=== PATIENT | male | born 1945 | race Two or more races ===

== ENCOUNTER 2024-04-19 09:40 | Outpatient (RCR) | payer MEDICARE, MEDICAID, SELFPAY | END 2024-04-24 23:59 | disposition home or self-care (01) | LOC: SCTC 09:40 | PROVIDERS: Referring Provider Urology; Visit Provider Radiology Therapeutic Radiology | DX: Z51.0 Encounter for antineoplastic radiation therapy (principal); C61 Malignant neoplasm of prostate; Z90.79 Acquired absence of other genital organ(s) | CPT/HCPCS: 77336; 77385 ==

== ENCOUNTER → 2024-04-26 | Outpatient (CLI) | payer MEDICARE, MEDICAID, SELFPAY ==
[2024-04-26 09:47] LABS: Prostate Specific Antigen < 0.10 ng/mL (0-4.00)
== END | disposition home or self-care (01) ==
LOC: COPL 08:46
PROVIDERS: PCP Family Medicine; Referring Provider Urology; Visit Provider Urology
DX: C61 Malignant neoplasm of prostate (principal)
CPT/HCPCS: 36415; 84153

== ENCOUNTER → 2024-05-05 | Outpatient (CLI) | payer MEDICARE, MEDICAID, SELFPAY ==
[2024-05-05 08:36] LABS: Basophils % (Auto) 1 % (0-2.5); Eosinophils # (Auto) 0.2 Thou/mm3 (0.0-0.5); Eosinophils % (Auto) 4 % (0-10); Hemoglobin 12.3 g/dL (13.5-16.0); Immature Granulocytes % (Auto) 0 % (0-0); Immature Granulocytes Auto 0.01 Thou/mm3 (0.00-0.00); Lymphocytes # (Auto) 1.3 Thou/mm3 (1.0-4.8); Lymphocytes % (Auto) 20 % (10-50); Mean Corpuscular HGB Conc 33.2 g/dl (31.0-37.0); Mean Corpuscular Hemoglobin 31.7 pg (25.0-35.0); Mean Corpuscular Volume 95 fL (80-100); Monocytes # (Auto) 0.7 Thou/mm3 (0.0-0.8); Monocytes % (Auto) 11 % (0-12); Neutrophils % (Auto) 64 % (37-80); Nucleated Red Blood Cell % 0 /100 WBC (0); Platelet Count 180 Thou/mm3 (140-440); Red Blood Count 3.88 Miln/mm3 (4.50-5.90); White Blood Count 6.2 Thou/mm3 (3.8-10.6)
[2024-05-05 08:58] LABS: Prostate Specific Antigen < 0.10 ng/mL (0-4.00)
[2024-05-05 09:09] LABS: Alanine Aminotransferase 22 U/L (10-49); Albumin, Serum 4.6 gm/dL (3.4-4.8); Albumin/Globulin Ratio 2.2 (1.2-2.2); Alkaline Phosphatase 92 U/L (46-116); Anion Gap 7 (7-16); Aspartate Amino Transferase 19 U/L (0-34); BUN/Creatinine Ratio 26 Ratio (12-20); Bilirubin,Total 0.4 mg/dL (0.3-1.2); Blood Urea Nitrogen 26 mg/dL (9-23); Calcium 9.9 mg/dL (8.3-10.6); Calcium (Corrected) 9.9 mg/dL (8.5-10.1); Carbon Dioxide 28.2 mMol/L (20.0-31.0); Chloride 104 mMol/L (98-107); Globulin 2.1 gm/dL (2.3-3.5); Glucose 126 mg/dL (74-106); Osmolality,Calculated 284 (275-295); Potassium 4.8 mMol/L (3.4-5.1); Sodium 139 mMol/L (136-145); Total Protein 6.7 gm/dL (5.7-8.2); eGFR > 60 See Note
== END | disposition home or self-care (01) ==
PROVIDERS: PCP Radiology Therapeutic Radiology; Referring Provider Radiology Therapeutic Radiology; Visit Provider Radiology Therapeutic Radiology
DX: C61 Malignant neoplasm of prostate (principal)
CPT/HCPCS: 36415; 80053; 84153; 85025

== ENCOUNTER 2024-05-24 14:49 | Outpatient (RCR) | payer MEDICARE, MEDICAID, SELFPAY ==
--- NOTE | 2024-05-04 09:50 | CTCTSUMM_ITS ---
[facility] [address] [place], [place] [address] Treatment Summary Date: 05/04/2024 MR#: [id number] Name: RIMMA HOROWITZ : 1945 Dx: C61 Referring Physician: Hilaria Webre MD (A) Diagnosis: [ICD10] C61 Malignant neoplasm of prostate (B) Aim of Treatment: ??Curative (C) Concomitant Chemotherapy: No (D) Radiation Dates: 02/23/2024 through 04/19/2024 Treatment Prescription prostate VMAT 10MV 6,840 cGy 38 180 cGy Approved (E) All parrish were treated using customized MLC Blocks (F) Finding at Discharge: Patient seen for first follow-up on 05/04/2024. Patient was feeling well w ith no significant pelvic or other symptoms. Patient will continue on with the Lupron for approximat carson another year. (G) Discharge Instructions and F/U Appt was given: The patient was also advised to continue follow-up with Dr. Weber and primary care physician: Cc: Hilaria Gooden MD Electronically signed by: Yusuf Vogel MD, MARGOR 05/04/2024 9:48 AM
== END 2024-05-25 23:59 | disposition home or self-care (01) ==
LOC: SCTC 14:49
PROVIDERS: PCP Family Medicine; Referring Provider Family Medicine; Visit Provider Radiology Therapeutic Radiology
DX: Z51.11 Encounter for antineoplastic chemotherapy (principal); C61 Malignant neoplasm of prostate
CPT/HCPCS: 96402; 99212; J9217; G0463

== ENCOUNTER → 2024-06-22 | Outpatient (BNVA) | payer MEDICARE, MEDICAID, SELFPAY | END | disposition home or self-care (01) | PROVIDERS: PCP Family Medicine; Referring Provider Family Medicine; Visit Provider Urology | DX: C61 Malignant neoplasm of prostate (principal); Z90.79 Acquired absence of other genital organ(s); R32 Unspecified urinary incontinence; E11.9 Type 2 diabetes mellitus without complications; I10 Essential (primary) hypertension | CPT/HCPCS: 99212; G0463 ==

== ENCOUNTER → 2024-08-11 | Outpatient (CLI) | payer MEDICARE, MEDICAID, SELFPAY ==
[2024-08-11 11:26] LABS: Basophils % (Auto) 0 % (0-2.5); Eosinophils # (Auto) 0.2 Thou/mm3 (0.0-0.5); Eosinophils % (Auto) 2 % (0-10); Hematocrit 36.1 % (41.0-53.0); Immature Granulocytes % (Auto) 1 % (0-0); Immature Granulocytes Auto 0.04 Thou/mm3 (0.00-0.00); Lymphocytes # (Auto) 1.6 Thou/mm3 (1.0-4.8); Lymphocytes % (Auto) 19 % (10-50); Mean Corpuscular HGB Conc 33.2 g/dl (31.0-37.0); Mean Corpuscular Volume 93 fL (80-100); Monocytes # (Auto) 0.6 Thou/mm3 (0.0-0.8); Monocytes % (Auto) 7 % (0-12); Neutrophils # (Auto) 6.2 Thou/mm3 (1.8-7.7); Neutrophils % (Auto) 72 % (37-80); Nucleated Red Blood Cell % 0 /100 WBC (0); Platelet Count 217 Thou/mm3 (140-440); RDW Standard Deviation 42.2 fL (35.1-43.9); Red Blood Count 3.87 Miln/mm3 (4.50-5.90); White Blood Count 8.6 Thou/mm3 (3.8-10.6)
[2024-08-11 11:33] LABS: Partial Thromboplastin Time 28.9 Seconds (22.0-36.0); Prothrombin Time 10.6 Seconds (9.0-12.2)
[2024-08-11 11:38] LABS: Anion Gap 9 (7-16); BUN/Creatinine Ratio 23 Ratio (12-20); Blood Urea Nitrogen 18 mg/dL (9-23); Calcium 9.3 mg/dL (8.3-10.6); Carbon Dioxide 27.8 mMol/L (20.0-31.0); Chloride 101 mMol/L (98-107); Creatinine (Component) 0.8 mg/dL (0.6-1.3); Glucose 136 mg/dL (74-106); Osmolality,Calculated 279 (275-295); Potassium 4.1 mMol/L (3.4-5.1); Sodium 138 mMol/L (136-145); eGFR > 60 See Note
[2024-08-11 11:45] LABS: Prostate Specific Antigen < 0.10 ng/mL (0-4.00)
== END | disposition home or self-care (01) ==
LOC: COPL 10:45
PROVIDERS: PCP Internal Medicine; Referring Provider Internal Medicine; Visit Provider Internal Medicine
DX: C61 Malignant neoplasm of prostate (principal); I25.10 Atherosclerotic heart disease of native coronary artery without angina pectoris; I48.91 Unspecified atrial fibrillation
CPT/HCPCS: 36415; 80048; 84153; 85025; 85610; 85730

== ENCOUNTER 2024-08-23 14:15 | Outpatient (RCR) | payer MEDICARE, MEDICAID, SELFPAY ==
--- NOTE | 2024-08-19 10:07 | CTCFLWUP_ITS ---
[facility] [address] [place], [place] [address] FOLLOW-UP NOTE Date: 08/19/2024 MR#: [id number] Name: RIMMA HOROWITZ : 1945 Dx: C61 Malignant neoplasm of prostate Identification. Patient with prostate CA status post radical prostatectomy 10/10/2023. Group 5 (5+4) with 40% bladder neck invasion. Right seminal vesicle involved. pT3N1 PSA joleen to 0.81 on 01/12/2024. Along with Lupron injections, 6 months worth, patient completed XRT via VMAT 6840 centigray completed 04/19/2024. Most recent labs 08/11/2024 CBC CMP, with mildly elevated glucose and PSA less than 0.10. Patient doing well with only mild hot flashes side effect. Minimal pelvic symptoms. Assessment1. pT3N1 radical prostatectomy [facility] 10/10/2023. 2. Completed XRT 6840 cGy 04/19/2024. Most recent lab less than 0.1 PSA 08/11/2024. 3. Receiving Lupron injections will get third 3-month injection later this month. 4. Follow-up in 3 months. Electronically signed by: Yusuf Vogel M.D. 08/19/2024 10:05 AM
== END 2024-08-23 23:59 | disposition home or self-care (01) ==
LOC: SCTC 14:15
PROVIDERS: PCP Family Medicine; Referring Provider Radiology Therapeutic Radiology; Visit Provider Radiology Therapeutic Radiology
DX: Z51.11 Encounter for antineoplastic chemotherapy (principal); C61 Malignant neoplasm of prostate; Z90.79 Acquired absence of other genital organ(s); Z92.3 Personal history of irradiation; Z79.818 Long term (current) use of other agents affecting estrogen receptors and estrogen levels
CPT/HCPCS: 96402; 99213; J9217; G0463

== ENCOUNTER → 2024-10-19 | Outpatient (BNVA) | payer MEDICARE, MEDICAID, SELFPAY | END | disposition home or self-care (01) | PROVIDERS: PCP Family Medicine; Referring Provider Family Medicine; Visit Provider Urology | DX: C61 Malignant neoplasm of prostate (principal); R32 Unspecified urinary incontinence; Z92.3 Personal history of irradiation; Z90.79 Acquired absence of other genital organ(s); E11.9 Type 2 diabetes mellitus without complications; I10 Essential (primary) hypertension; E03.9 Hypothyroidism, unspecified | CPT/HCPCS: 81003; 99212; G0463 ==

== ENCOUNTER → 2024-11-15 | Outpatient (CLI) | payer MEDICARE, MEDICAID, SELFPAY ==
[2024-11-15 14:45] LABS: Anion Gap 9 (7-16); BUN/Creatinine Ratio 27 Ratio (12-20); Basophils % (Auto) 1 % (0-2.5); Blood Urea Nitrogen 24 mg/dL (9-23); Calcium 9.6 mg/dL (8.3-10.6); Carbon Dioxide 29.4 mMol/L (20.0-31.0); Chloride 102 mMol/L (98-107); Creatinine (Component) 0.9 mg/dL (0.6-1.3); Eosinophils # (Auto) 0.2 Thou/mm3 (0.0-0.5); Eosinophils % (Auto) 2 % (0-10); Glucose 147 mg/dL (74-106); Hematocrit 33.7 % (41.0-53.0); Hemoglobin 11.4 g/dL (13.5-16.0); Immature Granulocytes % (Auto) 1 % (0-0); Immature Granulocytes Auto 0.03 Thou/mm3 (0.00-0.00); Lymphocytes # (Auto) 1.3 Thou/mm3 (1.0-4.8); Lymphocytes % (Auto) 20 % (10-50); Mean Corpuscular HGB Conc 33.8 g/dl (31.0-37.0); Mean Corpuscular Hemoglobin 31.1 pg (25.0-35.0); Mean Corpuscular Volume 92 fL (80-100); Monocytes # (Auto) 0.5 Thou/mm3 (0.0-0.8); Monocytes % (Auto) 8 % (0-12); Neutrophils # (Auto) 4.3 Thou/mm3 (1.8-7.7); Neutrophils % (Auto) 68 % (37-80); Nucleated Red Blood Cell % 0 /100 WBC (0); Osmolality,Calculated 286 (275-295); Platelet Count 251 Thou/mm3 (140-440); Potassium 4.5 mMol/L (3.4-5.1); RDW Standard Deviation 42.3 fL (35.1-43.9); Red Blood Count 3.66 Miln/mm3 (4.50-5.90); Sodium 140 mMol/L (136-145); White Blood Count 6.3 Thou/mm3 (3.8-10.6); eGFR > 60 See Note
[2024-11-15 14:47] LABS: Partial Thromboplastin Time 33.5 Seconds (22.0-36.0)
== END | disposition home or self-care (01) ==
LOC: COPL 13:35
PROVIDERS: PCP Family Medicine; Referring Provider Internal Medicine; Visit Provider Internal Medicine
DX: I25.10 Atherosclerotic heart disease of native coronary artery without angina pectoris (principal); I48.91 Unspecified atrial fibrillation
CPT/HCPCS: 36415; 80048; 85025; 85610; 85730

== ENCOUNTER 2024-11-22 09:56 | Outpatient (RCR) | payer MEDICARE, MEDICAID, SELFPAY ==
--- NOTE | 2024-11-18 10:34 | CTCFLWUP_ITS ---
[facility] [address] [place], [place] [address] FOLLOW-UP NOTE Date: 11/18/2024 MR#: [id number] Name: RIMMA HOROWITZ : 1945 Dx: C61 Malignant neoplasm of prostate Identification. Patient with prostate CA radical prostectomy 10/10/2023. Group 5 (5+4) with 40% bladder neck invasion right seminal vesicle involved pT3pN1 08/03+ nodes Postop XRT 6840 cGy via VMAT completed 04/19/2024 PSA that was steadily rising postop to 0.81 had dropped to <0.10 08/11/2024. Patient is doing well clinically minor pelvic symptoms related to the treatments and the side effects of Lupron. Spoke to patient about the possible benefit of adding the newer antiandrogen to his Lupron regimen considering his high risk. A#!. [place] prostate pT3pN1 radical prostatectomy [facility]. 10/10/2023 A#2. Postop XRT 6840 cGy via VMAT completed 04/19/2024. Concomitant Lupron injections. A#3. PSA less than 0.1 08/11/2024. A#4. Referral to Dr. Paez. For possible addition of newer antiandrogen considering the high risk of this patient's cancer A#5. Patient taking calcium and vitamin D. I will see patient again in 6 months time. Cc: Hilaria Weber MD Electronically signed by: Yusuf Vogel M.D. 11/18/2024 10:32 AM
== END 2024-11-22 23:59 | disposition home or self-care (01) ==
LOC: SCTC 09:56
PROVIDERS: PCP Family Medicine; Referring Provider Family Medicine; Visit Provider Radiology Therapeutic Radiology
DX: Z51.11 Encounter for antineoplastic chemotherapy (principal); C61 Malignant neoplasm of prostate; Z90.79 Acquired absence of other genital organ(s); Z92.3 Personal history of irradiation
CPT/HCPCS: 96402; 99213; J9217; G0463

== ENCOUNTER 2024-12-15 08:54 | Outpatient (RCR) | payer MEDICARE, MEDICAID, SELFPAY ==
--- NOTE | 2024-12-20 05:08 | CTCCONSULT_ITS ---
Patient: RIMMA HOROWITZ : 1945 MR#: [id number] Page 3 of 5 CONSULTATION NOTE DATE OF CONSULTATION: 12/15/2024 NAME: RIMMA HOROWITZ ACCOUNT: [id number] : 1945 AGE: 79 REFERRING PHYSICIAN: Brennan Staley MD PRIMARY PHYSICIAN: Brennan Staley MD REASON FOR VISIT: ONCOLOGY HISTORY: DIAGNOSIS: Malignant neoplasm of prostate [ICD10] C61 DATE OF DIAGNOSIS: 10/10/2023 STAGE/TNM: Stage IV Prostate cancer s/p radical prostatectomy 10/10/2023 Group 5+4 Ever with 40% bladder neck invasion right seminal vesicles involved T3 N1 3 out of 11 lymph nodes positive Positive radiation [address] Vogel A#!. [place] prostate pT3pN1 radical prostatectomy [facility]. 10/10/2023 A#2. Postop XRT 6840 cGy via VMAT completed 04/19/2024. Concomitant Lupron injections. TREATMENT HISTORY: Care?Plan Start?Date Cycle Day Intent HISTORY OF PRESENT ILLNESS: Subjective: Mr. Gil is a patient with a history of prostate cancer who has undergone surgical removal and radiation therapy. He presents for follow-up and management of his condition. The patient is currently receiving injections every 6 months to prevent cancer recurrence. He expresses willingness to start a new oral medication as recommended by the physician to further reduce the risk of cancer returning. Mr. Gil prefers to continue with injections every 3 months rather than every 6 months, stating that it would hurt less with a lower dose at each administration. Mr. Gil reports taking calcium supplements as previously recommended by another physician. He purchases these dqvq-ljo-yrcnuwz at [facility] but is unsure if his insurance covers the cost. He is unable to recall the specific name or formulation of the calcium supplement he is taking. Medical History - Prostate cancer, treated with surgery and radiation Surgical History - Prostatectomy for prostate cancer, followed by radiation therapy Medications and Supplements - Calcium - Taken daily - Purchased dpxg-qnt-wrydasz at [facility] - Injection (unspecified) - Given every 3 months - For preventing cancer recurrence Social History - Substance Use: Takes calcium supplements purchased [id number] at [facility] - Living Situation: Lives independently, able to purchase own supplements Objective: N/A OTHER MEDICAL HISTORY/CONDITIONS: Prostate cancer - dx 05/13/2023 HTN Diabetes Hypothyroid Robotic-assisted radical prostectomy 10/10/23 Cholecystectomy - 3 yrs ago FAMILY HISTORY: Patient?denies?family?cancer?history. SOCIAL HISTORY: Occupational?History:?RETIRED Education?Level:?Completed something less than 8th grade Marital?Status:? Tobacco Use:?Quit 30yrs ago-Smoked 5-6cigarettes/day x 25yrs ETOH Use:?1-2 beers/day now; drank several beers/day x 60yrs Drug?Note:?DENIES Social?History?Note:?Lives?with? MEDICATIONS: 1. Aspirin Child - 81 mg Daily 2. levothyroxine - 100 mcg/24 h Daily 3. lisinopril - 10 mg Daily 4. metformin - 500 mg Daily Medications Last Reconciled by Steph Chaves RN on 12/15/2024 ALLERGIES: No Known Drug Allergies REVIEW OF SYSTEMS: A complete 14-point review of systems was performed and is negative except as noted in interval history. PHYSICAL EXAMINATION: VITAL SIGNS: Temperature?98.3, B/P?136/72, Height?63.5?inches, Oxygen?Saturation?100% Weight?136?lbs (Change?since?11/22/24:?-2.8?lbs) PAIN: 0 - No pain ECOG Performance Status: 1 - Symptomatic; ambulatory; restricted in strenuous activity GENERAL APPEARANCE: Appears well, in no apparent distress, appropriately interactive. HEENT: Normocephalic, no temporal wasting, normal conjunctiva, no scleral icterus, normal hearing, lips without lesions, neck normal range of motion. CARDIOVASCULAR: Not assessed. PULMONARY: Normal respiratory effort, no respiratory distress or use of accessory muscles, speaking in full sentences, no tachypnea. EXTREMITIES: No pedal edema or cyanosis. SKIN: Normal skin appearance. NEUROLOGIC: Alert and oriented x4. PSHYCHIATRIC: Appropriate affect, mood normal, behavior normal, intact thought and speech. LABORATORY DATA: I have personally reviewed and interpreted each of the patient?s relevant lab tests, abnormal findings are below: Date 08/11/24 11/15/24 ??WHITE?BLOOD?COUNT?(Thou/mm3) 8.6 6.3 ??RED?BLOOD?COUNT?(Miln/mm3) 3.87?L 3.66?L ??HEMOGLOBIN?(gm/dl) 12.0?L 11.4?L ??HEMATOCRIT?(%) 36.1?L 33.7?L ??PLATELET?COUNT?(Thou/mm3) 217 251 ??NEUTROPHILS?%,?AUTO?(%) 72 68 ??LYMPH?%,?AUTO?(%) 19 20 ??NEUTROPHILS,?AUTO?(Thou/mm3) 6.2 4.3 ??GLUCOSE,RANDOM?(mg/dL) 136?H 147?H ??BLOOD?UREA?NITROGEN?(mg/dL) 18 24?H ??CREATININE?(mg/dL) 0.80 0.90 ??SODIUM?(mmol/L) 138 140 ??POTASSIUM?(mmol/L) 4.1 4.5 ??CHLORIDE?(mmol/L) 101 102 ??CrCl?(CandG)?(ml/min) 67.00 59.14 ??CALCIUM,?SERUM?(mg/dL) 9.3 9.6 ASSESSMENT/PLAN: Assessment and Plan: Mr. Gil, a male patient with a history of prostate cancer status post prostatectomy and radiation therapy, presenting for follow-up and management of his condition. Prostate Cancer (History of) Assessment: Patient has a history of prostate cancer that was treated with prostatectomy and radiation therapy. Despite treatment, there remains a risk of cancer recurrence. The patient is currently receiving injections every 3 months to prevent cancer recurrence. We are considering adding an oral medication to further reduce the risk of recurrence. Plan: - Continue current injection regimen every 3 months for cancer prevention - Initiate new oral medication for additional cancer prevention - Trial for 2 years, with option to discontinue if side effects occur - Informed consent obtained: patient agrees to try the new medication - Follow up in 4 weeks via phone call to discuss medication initiation - Medication will be delivered to patient's home or picked up (location to be confirmed) Bone Health Assessment: Given the patient's advanced age and history of prostate cancer treatment, there is a concern for potential bone density issues. Plan: - Order bone density test to assess bone health - Continue current cpce-zyg-jnmwcyv calcium supplementation - Recommend daily vitamin D supplementation in addition to calcium - Patient to bring calcium supplement bottle to next appointment for review ORDERS: Order # Description [id number] DXA L-Spine and Hip [id number] Comprehensive Metabolic Panel - 12 + CBC with Auto Diff + PSA + MD Follow Up 4 Week RETURN TO CLINIC: I reviewed the diagnosis, prognosis, and recommended treatment/procedure options with the patient (and/or their legal event representative), including the potential benefits, risks, side effects and alternative therapies. We also discussed the option of no treatment and the possibility of clinical trial participation, if applicable. All questions were addressed, and they demonstrated understanding. They provided informed consent to proceed with the proposed plan of care. BILLING AND COMPLIANCE: I reviewed external records from providers outside my specialty as summarized above. I spent a total of 50 minutes on this patient?s care on the day of their visit excluding time spent related to any billed procedures. This time includes time spent with the patient as well as time spent documenting in the medical record, reviewing patients records and tests, obtaining history, placing orders, communicating with other healthcare professionals, counseling the patient, family or caregiver, and/or care coordination for the diagnoses above. Electronically Signed by: Lamont Paez MD T: 5:06 AM CC: PCP: Brennan Staley Referring: Brennan Staley This document was completed utilizing speech recognition software. Grammatical errors, random word insertions, pronoun errors, and incomplete sentences are an occasional consequence of this system due to software limitations, ambient noise, and hardware issues. Any formal questions or concerns about the content, text or information contained within the body of this dictation should be directly addressed to the provider for clarification.
== END 2024-12-23 23:59 | disposition home or self-care (01) ==
LOC: SCTC 08:54
PROVIDERS: PCP Family Medicine; Referring Provider Family Medicine; Visit Provider Internal Medicine Hematology & Oncology
DX: C61 Malignant neoplasm of prostate (principal); Z90.79 Acquired absence of other genital organ(s); Z92.3 Personal history of irradiation
CPT/HCPCS: 99213; G0463

== ENCOUNTER 2025-01-12 10:18 | Outpatient (RCR) | payer MEDICARE, MEDICAID, SELFPAY ==
--- NOTE | 2025-01-12 14:18 | CTCFLWUP_ITS ---
Patient: RIMMA HOROWITZ : 1945 Page 5 of 5 FOLLOW UP NOTE DATE OF SERVICE: 01/12/2025 NAME: RIMMA HOROWITZ ACCOUNT: [id number] : 1945 AGE: 79 INTERVAL HISTORY: Patient was started on Xtandi at the last visit and he is here to follow-up. Patient is doing well and have no complaint from the medication. Patient have not done the blood work and will be doing today. ONCOLOGY HISTORY: DIAGNOSIS: Malignant neoplasm of prostate [ICD10] C61 DATE OF DIAGNOSIS: 10/10/2023 STAGE/TNM: Stage IV Prostate cancer s/p radical prostatectomy 10/10/2023 Group 5+4 [place] with 40% bladder neck invasion right seminal vesicles involved T3 N1 3 out of 11 lymph nodes positive Positive radiation [address] Vogel A#!. [place] prostate pT3pN1 radical prostatectomy [facility]. 10/10/2023 A#2. Postop XRT 6840 cGy via VMAT completed 04/19/2024. Concomitant Lupron injections. TREATMENT HISTORY: Care?Plan Start?Date Cycle Day Intent HISTORY OF PRESENT ILLNESS: Subjective: Mr. Gil is a patient with a history of prostate cancer who has undergone surgical removal and radiation therapy. He presents for follow-up and management of his condition. The patient is currently receiving injections every 6 months to prevent cancer recurrence. He expresses willingness to start a new oral medication as recommended by the physician to further reduce the risk of cancer returning. Mr. Gil prefers to continue with injections every 3 months rather than every 6 months, stating that it would hurt less with a lower dose at each administration. Mr. Gil reports taking calcium supplements as previously recommended by another physician. He purchases these zydo-eza-vyygmil at [facility] but is unsure if his insurance covers the cost. He is unable to recall the specific name or formulation of the calcium supplement he is taking. Medical History - Prostate cancer, treated with surgery and radiation Surgical History - Prostatectomy for prostate cancer, followed by radiation therapy Medications and Supplements - Calcium - Taken daily - Purchased gmhg-huw-wcsmhmt at [facility] - Injection (unspecified) - Given every 3 months - For preventing cancer recurrence Social History - Substance Use: Takes calcium supplements purchased bneh-sql-[id number] at [facility] - Living Situation: Lives independently, able to purchase own supplements Objective: N/A OTHER MEDICAL HISTORY/CONDITIONS: Prostate cancer - dx 05/13/2023 HTN Diabetes Hypothyroid Robotic-assisted radical prostectomy 10/10/23 Cholecystectomy - 3 yrs ago FAMILY HISTORY: Patient?denies?family?cancer?history. SOCIAL HISTORY: Occupational?History:?RETIRED Education?Level:?Completed something less than 8th grade Marital?Status:? Tobacco Use:?Quit 30yrs ago-Smoked 5-6cigarettes/day x 25yrs ETOH Use:?1-2 beers/day now; drank several beers/day x 60yrs Drug?Note:?DENIES Social?History?Note:?Lives?with? MEDICATIONS: 1. Aspirin Child - 81 mg Daily 2. Calcium + D - 600 mg(1,500mg) -200 unit 1 tab Twice a Day 3. levothyroxine - 100 mcg/24 h Daily 4. lisinopril - 10 mg Daily 5. metformin - 500 mg Daily 6. Xtandi - 80 mg 2 tab Daily Medications Last Reconciled by Estefani Ramos MA on 01/12/2025 ALLERGIES: No Known Drug Allergies REVIEW OF SYSTEMS: A complete 14-point review of systems was performed and is negative except as noted in interval history. PHYSICAL EXAMINATION: VITAL SIGNS: Temperature?98.5, B/P?129/70, Oxygen?Saturation?97% Weight?134?lbs (Change?since?12/15/24:?-2?lbs) PAIN: 0 - No pain ECOG Performance Status: 0 - Asymptomatic and fully active GENERAL APPEARANCE: Appears well, in no apparent distress, appropriately interactive. HEENT: Normocephalic, no temporal wasting, normal conjunctiva, no scleral icterus, normal hearing, lips without lesions, neck normal range of motion. CARDIOVASCULAR: Not assessed. PULMONARY: Normal respiratory effort, no respiratory distress or use of accessory muscles, speaking in full sentences, no tachypnea. EXTREMITIES: No pedal edema or cyanosis. SKIN: Normal skin appearance. NEUROLOGIC: Alert and oriented x4. PSHYCHIATRIC: Appropriate affect, mood normal, behavior normal, intact thought and speech. LABORATORY DATA: I have personally reviewed and interpreted each of the patient?s relevant lab tests, abnormal findings are below: Date 08/11/24 11/15/24 ??WHITE?BLOOD?COUNT?(Thou/mm3) 8.6 6.3 ??RED?BLOOD?COUNT?(Miln/mm3) 3.87?L 3.66?L ??HEMOGLOBIN?(gm/dl) 12.0?L 11.4?L ??HEMATOCRIT?(%) 36.1?L 33.7?L ??PLATELET?COUNT?(Thou/mm3) 217 251 ??NEUTROPHILS?%,?AUTO?(%) 72 68 ??LYMPH?%,?AUTO?(%) 19 20 ??NEUTROPHILS,?AUTO?(Thou/mm3) 6.2 4.3 ??GLUCOSE,RANDOM?(mg/dL) 136?H 147?H ??BLOOD?UREA?NITROGEN?(mg/dL) 18 24?H ??CREATININE?(mg/dL) 0.80 0.90 ??SODIUM?(mmol/L) 138 140 ??POTASSIUM?(mmol/L) 4.1 4.5 ??CHLORIDE?(mmol/L) 101 102 ??CrCl?(CandG)?(ml/min) 67.00 59.14 ??CALCIUM,?SERUM?(mg/dL) 9.3 9.6 ASSESSMENT/PLAN: Assessment and Plan: Mr. Gil, a male patient with a history of prostate cancer status post prostatectomy and radiation therapy, presenting for follow-up and management of his condition. Prostate Cancer (History of) Assessment: Patient has a history of prostate cancer that was treated with prostatectomy and radiation therapy. Despite treatment, there remains a risk of cancer recurrence. The patient is currently receiving injections every 3 months to prevent cancer recurrence. We are considering adding an oral medication to further reduce the risk of recurrence. Plan: - Continue current injection regimen every 3 months for cancer prevention Continue Xtandi Bone Health Assessment: Given the patient's advanced age and history of prostate cancer treatment, there is a concern for potential bone density issues. Plan: - Order bone density test to assess bone health - Continue current klvu-ysz-geslnvh calcium supplementation - Recommend daily vitamin D supplementation in addition to calcium - Patient to bring calcium supplement bottle to next appointment for review BRCA testing Will check for both BRCA 1 and 2 on the tissue as well as somatic BRCA 1 and 2 for possible treatment with PARP inhibitors in the future ORDERS: Order # Description [id number] Comprehensive Metabolic Panel - 12 + CBC with Auto Diff [id number] PSA [id number] [facility] Amanda CDX [id number] Comprehensive Metabolic Panel - 12 + CBC with Auto Diff + PSA [id number] MD Follow Up 2 Months RETURN TO CLINIC: I reviewed the diagnosis, prognosis, and recommended treatment/procedure options with the patient (and/or their legal telecommunications sales representative), including the potential benefits, risks, side effects and alternative therapies. We also discussed the option of no treatment and the possibility of clinical trial participation, if applicable. All questions were addressed, and they demonstrated understanding. They provided informed consent to proceed with the proposed plan of care. BILLING AND COMPLIANCE: I reviewed external records from providers outside my specialty as summarized above. I spent a total of 50 minutes on this patient?s care on the day of their visit excluding time spent related to any billed procedures. This time includes time spent with the patient as well as time spent documenting in the medical record, reviewing patients records and tests, obtaining history, placing orders, communicating with other healthcare professionals, counseling the patient, family or caregiver, and/or care coordination for the diagnoses above. Electronically Signed by: {Object.Sanct_ID*PnP.NameFL@M}, {Object.Sanct_ID*PnP.Suffix@U} D: {Object.Sanct_Date} T: {Object.Sanct_Time} CC: PCP: Brennan Staley Referring: Brennan Staley This document was completed utilizing speech recognition software. Grammatical errors, random word insertions, pronoun errors, and incomplete sentences are an occasional consequence of this system due to software limitations, ambient noise, and hardware issues. Any formal questions or concerns about the content, text or information contained within the body of this dictation should be directly addressed to the provider for clarification.
== END 2025-01-23 23:59 | disposition home or self-care (01) ==
LOC: SCTC 10:18
PROVIDERS: PCP Family Medicine; Referring Provider Family Medicine; Visit Provider Internal Medicine Hematology & Oncology
DX: C61 Malignant neoplasm of prostate (principal); Z90.79 Acquired absence of other genital organ(s); Z92.3 Personal history of irradiation
CPT/HCPCS: 99213; G0463

== ENCOUNTER → 2025-01-12 | Outpatient (CLI) | payer MEDICARE, MEDICAID, SELFPAY ==
[2025-01-12 14:20] LABS: Basophils # (Auto) 0.0 Thou/mm3 (0.0-0.2); Basophils % (Auto) 1 % (0-2.5); Eosinophils # (Auto) 0.2 Thou/mm3 (0.0-0.5); Eosinophils % (Auto) 3 % (0-10); Hematocrit 34.6 % (41.0-53.0); Hemoglobin 11.4 g/dL (13.5-16.0); Immature Granulocytes Auto 0.02 Thou/mm3 (0.00-0.00); Lymphocytes # (Auto) 1.4 Thou/mm3 (1.0-4.8); Lymphocytes % (Auto) 24 % (10-50); Mean Corpuscular HGB Conc 32.9 g/dl (31.0-37.0); Mean Corpuscular Hemoglobin 30.1 pg (25.0-35.0); Mean Corpuscular Volume 91 fL (80-100); Monocytes # (Auto) 0.4 Thou/mm3 (0.0-0.8); Monocytes % (Auto) 8 % (0-12); Neutrophils # (Auto) 3.7 Thou/mm3 (1.8-7.7); Neutrophils % (Auto) 64 % (37-80); Nucleated Red Blood Cell # 0.00 Thou/mm3 (0.00-0.00); Nucleated Red Blood Cell % 0 /100 WBC (0); Platelet Count 245 Thou/mm3 (140-440); RDW Standard Deviation 41.3 fL (35.1-43.9); Red Blood Count 3.79 Miln/mm3 (4.50-5.90); White Blood Count 5.7 Thou/mm3 (3.8-10.6)
[2025-01-12 14:34] LABS: Prostate Specific Antigen < 0.10 ng/mL (0-4.00)
[2025-01-12 14:36] LABS: Alanine Aminotransferase 17 U/L (10-49); Albumin, Serum 4.0 gm/dL (3.4-4.8); Albumin/Globulin Ratio 1.9 (1.2-2.2); Alkaline Phosphatase 95 U/L (46-116); Anion Gap 9 (7-16); Aspartate Amino Transferase 20 U/L (0-34); BUN/Creatinine Ratio 34 Ratio (12-20); Bilirubin,Total 0.5 mg/dL (0.3-1.2); Blood Urea Nitrogen 27 mg/dL (9-23); Calcium 10.2 mg/dL (8.3-10.6); Calcium (Corrected) 10.2 mg/dL (8.5-10.1); Carbon Dioxide 27.6 mMol/L (20.0-31.0); Chloride 104 mMol/L (98-107); Creatinine (Component) 0.8 mg/dL (0.6-1.3); Globulin 2.1 gm/dL (2.3-3.5); Glucose 135 mg/dL (74-106); Osmolality,Calculated 288 (275-295); Potassium 5.1 mMol/L (3.4-5.1); Sodium 141 mMol/L (136-145); Total Protein 6.1 gm/dL (5.7-8.2); eGFR > 60 See Note
== END | disposition home or self-care (01) ==
LOC: COPL 13:43 → SCTO 13:43
PROVIDERS: PCP Family Medicine; Referring Provider Internal Medicine Hematology & Oncology; Visit Provider Internal Medicine Hematology & Oncology
DX: C61 Malignant neoplasm of prostate (principal)
CPT/HCPCS: 36415; 80053; 84153; 85025

== ENCOUNTER → 2025-01-14 | Outpatient (CLI) | payer MEDICARE, MEDICAID, SELFPAY ==
--- NOTE | 2025-01-14 13:00 | XR_ITS ---
Examination: Bone densitometry Date and time of exam:January 14, 2025 1312 hours INDICATIONS: Diagnosis prostate cancer, 79-year-old male with diagnosis age related osteoporosis Technique: Lumbar spine and hip total bone mineralization values of an calculated. Peak reference and age match control results have been displayed. Findings: Lumbar spine total bone mineralization is0.968 gm/cm2. This is 1.1 standard deviations below peak reference. Hip total bone mineralization is 1.058 gm/cm2 This is 0.0 standard deviations at peak reference. This is 1.1 standard deviations above age-matched controls Impression: There is osteopenia based on lumbar spine measurements. There is osteopenia based on hip measurements
== END | disposition home or self-care (01) ==
PROVIDERS: PCP Family Medicine; Referring Provider Internal Medicine Hematology & Oncology; Visit Provider Internal Medicine Hematology & Oncology
DX: M85.89 Other specified disorders of bone density and structure, multiple sites (principal)
CPT/HCPCS: 77080

== ENCOUNTER → 2025-01-17 | Outpatient (CLI) | payer MEDICARE, MEDICAID, SELFPAY ==
[2025-01-17 14:55] LABS: Prostate Specific Antigen < 0.10 ng/mL (0-4.00)
== END | disposition home or self-care (01) ==
PROVIDERS: PCP Family Medicine; Referring Provider Urology; Visit Provider Urology
DX: R97.20 Elevated prostate specific antigen [PSA] (principal)
CPT/HCPCS: 36415; 84153

== ENCOUNTER → 2025-01-31 | Outpatient (BNVA) | payer MEDICARE, MEDICAID, SELFPAY | END | disposition home or self-care (01) | PROVIDERS: PCP Family Medicine; Referring Provider Family Medicine; Visit Provider Urology | DX: C61 Malignant neoplasm of prostate (principal); Z90.79 Acquired absence of other genital organ(s); Z92.3 Personal history of irradiation; N39.46 Mixed incontinence; N52.9 Male erectile dysfunction, unspecified; E11.9 Type 2 diabetes mellitus without complications; I10 Essential (primary) hypertension; E03.9 Hypothyroidism, unspecified | CPT/HCPCS: 99212; 99213; G0463 ==

== ENCOUNTER → 2025-02-22 | Outpatient (CLI) | payer MEDICARE, MEDICAID, SELFPAY ==
[2025-02-22 11:30] LABS: Basophils # (Auto) 0.0 Thou/mm3 (0.0-0.2); Basophils % (Auto) 1 % (0-2.5); Eosinophils # (Auto) 0.2 Thou/mm3 (0.0-0.5); Eosinophils % (Auto) 3 % (0-10); Hematocrit 35.8 % (41.0-53.0); Hemoglobin 11.6 g/dL (13.5-16.0); Immature Granulocytes Auto 0.02 Thou/mm3 (0.00-0.00); Lymphocytes # (Auto) 1.4 Thou/mm3 (1.0-4.8); Lymphocytes % (Auto) 26 % (10-50); Mean Corpuscular HGB Conc 32.4 g/dl (31.0-37.0); Mean Corpuscular Hemoglobin 29.6 pg (25.0-35.0); Mean Corpuscular Volume 91 fL (80-100); Monocytes # (Auto) 0.5 Thou/mm3 (0.0-0.8); Monocytes % (Auto) 8 % (0-12); Neutrophils # (Auto) 3.5 Thou/mm3 (1.8-7.7); Neutrophils % (Auto) 62 % (37-80); Nucleated Red Blood Cell # 0.00 Thou/mm3 (0.00-0.00); Nucleated Red Blood Cell % 0 /100 WBC (0); Platelet Count 235 Thou/mm3 (140-440); RDW Standard Deviation 47.8 fL (35.1-43.9); Red Blood Count 3.92 Miln/mm3 (4.50-5.90); White Blood Count 5.6 Thou/mm3 (3.8-10.6)
[2025-02-22 11:39] LABS: Prostate Specific Antigen < 0.10 ng/mL (0-4.00)
[2025-02-22 11:44] LABS: Alanine Aminotransferase 11 U/L (10-49); Albumin, Serum 4.4 gm/dL (3.4-4.8); Albumin/Globulin Ratio 1.8 (1.2-2.2); Alkaline Phosphatase 68 U/L (46-116); Anion Gap 8 (7-16); Aspartate Amino Transferase 22 U/L (0-34); BUN/Creatinine Ratio 25 Ratio (12-20); Bilirubin,Total 0.5 mg/dL (0.3-1.2); Blood Urea Nitrogen 25 mg/dL (9-23); Calcium 10.4 mg/dL (8.3-10.6); Calcium (Corrected) 10.4 mg/dL (8.5-10.1); Carbon Dioxide 27.8 mMol/L (20.0-31.0); Chloride 104 mMol/L (98-107); Creatinine (Component) 1.0 mg/dL (0.6-1.3); Globulin 2.5 gm/dL (2.3-3.5); Glucose 141 mg/dL (74-106); Osmolality,Calculated 285 (275-295); Potassium 5.0 mMol/L (3.4-5.1); Sodium 140 mMol/L (136-145); Total Protein 6.9 gm/dL (5.7-8.2); eGFR > 60 See Note
== END | disposition home or self-care (01) ==
LOC: SCTO 09:59
PROVIDERS: PCP Nurse Practitioner; Referring Provider Internal Medicine Hematology & Oncology; Visit Provider Internal Medicine Hematology & Oncology
DX: C61 Malignant neoplasm of prostate (principal)
CPT/HCPCS: 36415; 80053; 84153; 85025

== ENCOUNTER 2025-02-24 11:34 | Outpatient (RCR) | payer MEDICARE, MEDICAID, SELFPAY | END 2025-03-25 23:59 | disposition home or self-care (01) | LOC: SCTC 11:34 | PROVIDERS: PCP Family Medicine; Referring Provider Internal Medicine Hematology & Oncology; Visit Provider Internal Medicine Hematology & Oncology | DX: C61 Malignant neoplasm of prostate (principal); Z90.79 Acquired absence of other genital organ(s); Z92.3 Personal history of irradiation; M85.89 Other specified disorders of bone density and structure, multiple sites | CPT/HCPCS: Q3014 ==

== ENCOUNTER → 2025-04-25 | Outpatient (CLI) | payer MEDICARE, MEDICAID, SELFPAY ==
[2025-04-26 13:16] LABS: Prostate Specific Antigen < 0.10 ng/mL (0-4.00)
== END | disposition home or self-care (01) ==
LOC: COPL 13:19
PROVIDERS: PCP Family Medicine; Referring Provider Urology; Visit Provider Urology
DX: C61 Malignant neoplasm of prostate (principal)
CPT/HCPCS: 36415; 84153

== ENCOUNTER → 2025-05-02 | Outpatient (BNVA) | payer MEDICARE, MEDICAID, SELFPAY | END | disposition home or self-care (01) | PROVIDERS: PCP Family Medicine; Referring Provider Family Medicine; Visit Provider Urology | DX: C61 Malignant neoplasm of prostate (principal); R32 Unspecified urinary incontinence; Z90.79 Acquired absence of other genital organ(s); E11.9 Type 2 diabetes mellitus without complications; I10 Essential (primary) hypertension | CPT/HCPCS: 81003; 99213; G0463 ==